=== PATIENT | female | born 1950 | race Caucasian/White ===

== ENCOUNTER 2021-08-01 12:46 | Outpatient (REF) | payer MEDICARE, SELFPAY ==
--- NOTE | ~2021-08-01 | MM_ITS ---
EXAMINATION: MM SCREENING DIGITAL BREAST TOMOSYNTHESIS, BILATERAL CLINICAL INFORMATION: Screening. Asymptomatic. The lifetime risk of breast cancer based on the Tyrer-Cuzick Model is 3%. COMPARISON: Mammography: 05/18/2019, 05/07/2018, 05/05/2017 TECHNIQUE: Digital breast tomosynthesis is performed in both the craniocaudal and mediolateral oblique views along with computer-aided detection (CAD). Synthesized 2D images are generated from the tomosynthesis. FINDINGS: There are scattered areas of fibroglandular density (ACR BI-RADS breast composition Category b). There are no significant masses, abnormal calcifications, or other abnormalities. Parenchymal pattern is similar to prior studies. The axilla and skin contours are unremarkable. MM/MM tomosynthesis screening BI IMPRESSION: No mammographic evidence of malignancy. ASSESSMENT: BI-RADS 1: Negative RECOMMENDATION: Routine annual mammography screening. This patient's information was entered into a reminder system with a target due date for their next mammogram.
== END 2021-08-01 12:47 | disposition home or self-care (01) ==
LOC: HO.MAMMO 12:46
PROVIDERS: PCP Internal Medicine; Visit Provider Internal Medicine
DX: Z12.31 Encounter for screening mammogram for malignant neoplasm of breast (principal)
CPT/HCPCS: 77063; 77067

== ENCOUNTER 2021-10-24 08:49 | Outpatient (REF) | payer MEDICARE, SELFPAY ==
--- NOTE | ~2021-10-24 | US_ITS ---
EXAMINATION: US ABDOMEN COMPLETE CLINICAL INFORMATION: Epigastric abdominal pain. COMPARISON: CT abdomen 05/10/2006, x-ray abdomen 05/10/2006. TECHNIQUE: Real-time imaging of the abdominal viscera. FINDINGS: PANCREAS: Partially visualized body of the pancreas is homogeneous in echotexture. The head and the tail are not seen. ABDOMINAL AORTA: The proximal, mid, and distal segments are normal in caliber. INFERIOR VENA CAVA: Visualized portions are normal. LIVER: The liver is normal in size. The liver contour is normal. Parenchymal echogenicity is normal. There are anechoic cysts in the liver. 1. Lesion in the left hepatic lobe measures 2.2 x 2.0 x 2.0 cm. 2. Lesion in the left hepatic lobe measures 2.1 x 1.9 x 1.8 cm. 3. Lesion in the right hepatic lobe measures 1.7 x 1.2 x 1.3 cm. 4. Lesion in the right lower lobe measures 3.3 x 2.1 x 3.1 cm and appears complex. There is no intrahepatic biliary duct dilatation seen. GALLBLADDER: The gallbladder is physiologically distended without evidence of stones, sludge, polyps, wall thickening or pericholecystic fluid. There is gallbladder debris seen in the decubitus view. COMMON BILE DUCT: Normal in caliber measuring 0.5 cm in diameter. RIGHT KIDNEY: No renal calculi or focal parenchymal lesions. There is mild hydronephrosis. The kidney measures 9.9 cm in maximum dimension. LEFT KIDNEY: No renal calculi or focal parenchymal lesions. There is mild hydronephrosis. The kidney measures 11.0 cm in maximum dimension. SPLEEN: Normal. The spleen measures 9.5 cm in maximum dimension. FREE FLUID: None. US/US abdomen complete IMPRESSION: Multiple hepatic cysts. They were visualized on the previous CT abdomen exam 05/11/2006. Bilateral mild hydronephrosis of unknown etiology.
== END 2021-10-24 08:50 | disposition home or self-care (01) ==
LOC: HO.US 08:49
PROVIDERS: Visit Provider Internal Medicine
DX: R10.13 Epigastric pain (principal)
CPT/HCPCS: 76700

== ENCOUNTER 2022-08-06 13:00 | Outpatient (REF) | payer MEDICARE, SELFPAY ==
--- NOTE | ~2022-08-06 | MM_ITS ---
EXAMINATION: MM SCREENING DIGITAL BREAST TOMOSYNTHESIS, BILATERAL CLINICAL INFORMATION: Screening. Asymptomatic. The lifetime risk of breast cancer based on the Tyrer-Cuzick Model is 2.9%. COMPARISON: Mammography: August 01, 2021 and studies dating back to May 11, 2010 TECHNIQUE: Digital breast tomosynthesis is performed in both the craniocaudal and mediolateral oblique views along with computer-aided detection (CAD). Synthesized 2D images are generated from the tomosynthesis. FINDINGS: There are scattered areas of fibroglandular density (ACR BI-RADS breast composition Category b). There are no significant masses, abnormal calcifications, or other abnormalities. MM/MM tomosynthesis screening BI IMPRESSION: No significant changes from prior exam. ASSESSMENT: BI-RADS 1: Negative RECOMMENDATION: Routine annual mammography screening. This patient's information was entered into a reminder system with a target due date for their next mammogram.
== END 2022-08-06 13:01 | disposition home or self-care (01) ==
LOC: HO.MAMMO 13:00
PROVIDERS: PCP Internal Medicine; Visit Provider Internal Medicine
DX: Z12.31 Encounter for screening mammogram for malignant neoplasm of breast (principal)
CPT/HCPCS: 77063; 77067

== ENCOUNTER 2023-06-22 23:26 | Emergency (ER) | payer MEDICARE, SELFPAY ==
--- NOTE | 2023-06-22 | ECG_ITS ---
Test Reason : episode of unresponsiveness Blood Pressure : / mmHG Vent. Rate : 050 BPM Atrial Rate : 050 BPM P-R Int : 200 ms QRS Dur : 094 ms QT Int : 470 ms P-R-T Axes : 046 -32 029 degrees QTc Int : 428 ms Sinus bradycardia Left axis deviation Possible Lateral infarct , age undetermined Abnormal ECG When compared with ECG of 27-AUG-2017 09:52, Vent. rate has decreased BY 26 BPM Borderline criteria for Lateral infarct are now Present Referred By: Generic ED Physician Electronically Signed By:Dennys Chahal
--- NOTE | ~2023-06-22 | CT_ITS ---
EXAMINATION: CT HEAD WITHOUT CONTRAST CLINICAL INFORMATION: Unresponsiveness. COMPARISON: CT head from 07/03/2008. TECHNIQUE: Contiguous axial imaging was performed from the skull base to vertex without intravenous administration of contrast. This CT examination was performed using dose optimization techniques as appropriate, variously including the following: *Automated exposure control. *Adjustment of mA and/or kV according to patient size (this includes techniques or standardized protocols for targeted exams where dose is matched to indication/reason for exam; i.e. extremities or head). *Use of iterative reconstruction technique. DLP: 586 mGy-cm FINDINGS: There is no evidence of acute intracranial hemorrhage or edematous territorial infarction. Chu-white matter differentiation is preserved. A few foci of hypoattenuation in the periventricular and deep white matter are consistent with mild microangiopathy. The ventricles are normal in morphology and size. No evidence for obstructive hydrocephalus. No abnormal mass effect or midline shift. No extra-axial fluid collections. No acute soft tissue or osseous abnormalities. Persistent metopic suture. The mastoid air cells and visualized paranasal sinuses are clear. Moderate to advanced degenerative arthropathy of the temporomandibular joints. CT/CT head/brain wo IV con IMPRESSION: 1. No evidence of acute intracranial hemorrhage or edematous territorial infarction. 2. Mild underlying microangiopathy.
[2023-06-22 23:38] VITALS: BP 120/80; PULSE 60; O2SAT 99
[2023-06-22 23:39] VITALS: BP 130/69; PULSE 59; RESP 16; TEMP 36.6; O2SAT 99; BMI 31.6
[2023-06-23 00:01] LABS: Hematocrit 43.4 % (37.0-47.0); Hemoglobin 14.5 g/dl (12.0-16.0); Mean Corpuscular HGB Conc 33.4 g/dl (31.0-35.0); Mean Corpuscular Volume 95.8 fL (80.0-98.0); Mean Platelet Volume 9.2 fL (9.4-12.3); Platelet Count 235 X10*3/uL (160-400); Red Blood Count 4.53 X10*6/uL (4.20-5.50); Red Cell Distribution Width 12.1 % (11.0-16.0); White Blood Count 6.6 X10*3/uL (4.8-10.8)
[2023-06-23 00:16] LABS: Alanine Aminotransferase 17 U/L (0-31); Albumin Level 4.1 g/dL (3.5-5.0); Alkaline Phosphatase 75 U/L (39-117); Anion Gap 11 (12-20); Aspartate Amino Transferase 22 U/L (5-31); Bilirubin Total 0.5 mg/dL (0.0-1.0); Blood Urea Nitrogen 19 mg/dL (9-16); Calcium 9.2 mg/dL (8.4-10.2); Carbon Dioxide 29 mmol/L (22-29); Chloride 104 mmol/L (96-108); Creatinine Clr Calc Pharmacy 65.6; Estimated Glomerular Filt Rate > 60; Glucose Random 60 mg/dL (60-115); Potassium 3.4 mmol/L (3.3-5.1); Sodium 141 mmol/L (135-145); Total Protein 6.5 g/dL (6.5-8.0)
[2023-06-23 00:18] LABS: Glucose, Whole Blood 72 mg/dL (60-115)
[2023-06-23 00:18] LABS: Glucose, Whole Blood 100 mg/dL (60-115)
[2023-06-23 00:23] LABS: Troponin-I High Sensitivity 2.9 ng/L (<3.5-17.0)
[2023-06-23 00:37] LABS: COVID-19 Test Negative (Negative); IDNOW Serial# 08D9AD1C; IDNOW Serial# 152EDE1D; Influenza A Negative (Negative); Influenza B2 Negative (Negative)
--- NOTE | 2023-06-23 00:38 | ED.GENADULT ---
HPI - General Adult General Chief complaint: General Medical Stated complaint: weakness, low poc of 40 Time Seen by Provider: 06/23/23 00:23 Source: patient, family (Spouse) and EMS Mode of arrival: EMS Limitations: no limitations History of Present Illness HPI narrative: 73-year-old female brought in by ambulance for evaluation after was found unresponsive by her . Patient had a dinner last night ?rice, green beans, and roasted chicken ?and high sugar drink after dinner, patient went to bed around 22:30 found her in bed not responding to him and sweating profusely then he called 911 on EMS arrival sugar was 40 patient was given 12.5 dextrose by EMS patient started to respond gradually after, patient is not known to be diabetic or taking anti hyperglycemic medication and eats normal meals and normally likes eating excess carbohydrate. declined seeing any seizure activity. Patient has no chest pain or abdominal pain. Recently patient had upper respiratory infection that improved after finished a course of Z-Saturnino. Patient feels back to her baseline. Related Data Allergies Allergy/AdvReac Type Severity Reaction Status Date / Time codeine [CODEINE] Allergy Unknown PSYCHOTOPIC Verified 06/23/23 00:28 EFFECT penicillin G [PENICILLIN G] Allergy Unknown HIVES Verified 06/23/23 00:28 Review of Systems Review of Systems: All other systems are reviewed and are negative Constitutional: Reports as per HPI and Reports no additional constitutional complaints Eyes: Reports as per HPI and Reports no additional eye complaints Reports system reviewed and no additional complaints, except as documented Cardiovascular: Reports as per HPI and Reports no additional cardiovascular complaints Respiratory: Reports as per HPI and Reports no additional respiratory complaints Gastrointestinal: Reports as per HPI and Reports no additional gastrointestinal complaints Genitourinary: Reports no additional female genitourinary complaints Musculoskeletal: Reports no additional musculoskeletal complaints Skin/Breast: Reports system reviewed and no additional complaints, except as docu Psychiatric: Reports no additional psychiatric complaints Endocrine: Reports no additional endocrine complaints Hematologic/Lymphatic: Reports no additional hematologic/lymphatic complaints Allergic/Immunologic: Reports no additional allergic/immunologic complaints Reports system reviewed and no additional complaints, except as documented and Reports Abnormal speech present [facility] Social History Social History Smoked in Last 30 Days: No Use of substances other than those prescribed or required for medical reasons: No Advance Directives: No Advance Directives Information Provided: No Physical Exam ED Vital Signs: Vital Signs - 24 hr 06/22/23 23:39 06/23/23 02:00 06/23/23 02:33 Temperature 98 F Pulse Rate 59 64 65 Respiratory Rate 16 16 Blood Pressure 130/69 134/77 142/86 H Pulse Oximetry 99 99 Oxygen Delivery Method Room Air Room Air 06/23/23 02:39 06/23/23 02:44 Temperature Pulse Rate 68 74 Respiratory Rate Blood Pressure 148/84 H 134/77 Pulse Oximetry Oxygen Delivery Method BMI result Body Mass Index 31.6 Vital signs have been reviewed and appear to be correct. Blood pressure elevated. Heart rate normal. Respiratory rate normal. Temperature normal. Oxygen saturation normal. Appearance: Alert. Oriented X3. No acute distress. Head: Normal external exam. Normocephalic. Atraumatic. No Lin signs noted. No raccoon eyes noted Eyes: PERRLA. EOMI. Conjunctiva and sclera normal. Eyelids normal. ENT: TM's Normal. Pharynx normal. Uvula midline. Moist mucous membranes. No trismus noted. No drooling noted. No muffled voice noted. Neck: Normal inspection. Neck supple. FROM. No adenopathy. Thyroid Normal. No meningeal signs. No neck mass noted. CVS: Normal heart rate and rhythm. Heart sound normal. No murmurs noted. Pulses normal throughout. Respiratory: No respiratory distress. Painless inspiration. Breath sounds normal. No wheezes/rales/rhonchi noted. Chest nontender. No accessory muscle usage noted or decreased air movement noted. Abdomen: Soft and nontender. Bowel sounds normal in all 4 quadrants. No distention noted. No organomegaly noted. No visible injury noted. Back: No CVA tenderness. Full range of motion noted. Skin: Skin warm and dry. Normal skin color. Normal skin turgor. No rashes/lesions/lacerations noted. Extremities: No lower extremity edema. Extremities exhibit normal range of motion. Extremities nontender. Neuro: Oriented X 3. Cranial nerve exam: II-XII are grossly intact No motor deficit. No sensory deficit. Reflexes normal. Course Reevaluation(s) Reevaluation #1: 73-year-old female brought in by ambulance after was found by unresponsive in bed, found to be hypoglycemic by EMS patient is not known to be diabetic or taking any medication to cause hypoglycemia however patient gradually improved after was given dextrose by EMS. Patient now is AAOx3. Will admit the patient for further investigation. Time: 02:28 Medications Administered Discontinued Medications Generic Name Dose Route Start Last Admin Trade Name Haleigh PRN Reason Stop Dose Admin Sodium Chloride 1,000 mls @ 999 mls/hr 06/23/23 00:48 06/23/23 02:33 Ns IV 06/23/23 01:48 Infused .Q1H1M ONE Infusion Medical Decision Making Differential Diagnosis Differential Diagnoses: The differential diagnosis associated with the presentation includes (Syncope, postictal and seizure, hypoglycemia, electrolyte abnormality, severe anemia, ACS, intracranial bleed, upper respiratory infection.) Admission/Observation Consideration of admission/observation: Escalation of care including admission/observation considered Consult Healthcare Provider Management of the patient was discussed with: Hospitalist (Dr. Daniel) Patient was seen and examined by Dr. Daniel, who disagree with admission advised to send the patient home to follow-up with PCP. Lab Data MDM Lab Attestation statement: I reviewed the patient's lab results. 06/22/23 23:55 06/22/23 23:56 Labs: Lab Results 06/22/23 06/22/23 06/22/23 Range/Units 23:47 23:55 23:56 WBC 6.6 (4.8-10.8) X10*3/uL RBC 4.53 (4.20-5.50) X10*6/uL Hgb 14.5 (12.0-16.0) g/dl Hct 43.4 (37.0-47.0) % MCV 95.8 (80.0-98.0) fL MCH 32.0 (27.0-33.0) pg MCHC 33.4 (31.0-35.0) g/dl RDW 12.1 (11.0-16.0) % Plt Count 235 (160-400) X10*3/uL MPV 9.2 L (9.4-12.3) fL Absolute Nucleated RBC 0.000 (0.0-0.012) X10*3/uL Nucleated RBC % (auto) 0.0 (0.0-0.2) /100WBC Sodium 141 (135-145) mmol/L Potassium 3.4 (3.3-5.1) mmol/L Chloride 104 (96-108) mmol/L Carbon Dioxide 29 (22-29) mmol/L Anion Gap 11 L (12-20) BUN 19 H (9-16) mg/dL Creatinine 0.84 (0.5-1.4) mg/dL Estim Creat Clear Calc 65.6 Estimated GFR > 60 POC Glucose 72 (60-115) mg/dL Random Glucose 60 (60-115) mg/dL Calcium 9.2 (8.4-10.2) mg/dL Total Bilirubin 0.5 (0.0-1.0) mg/dL AST 22 (5-31) U/L ALT 17 (0-31) U/L Alkaline Phosphatase 75 (39-117) U/L Troponin I High Sens 2.9 (<3.5-17.0) ng/L Total Protein 6.5 (6.5-8.0) g/dL Albumin 4.1 (3.5-5.0) g/dL COVID-19 (DAVID) (Negative) COVID-19 Clin Com Influenza Type A (GENET) (Negative) Influenza Type B (GENET) (Negative) Influenza A & B Note 06/23/23 06/23/23 06/23/23 Range/Units 00:08 00:12 02:36 WBC (4.8-10.8) X10*3/uL RBC (4.20-5.50) X10*6/uL Hgb (12.0-16.0) g/dl Hct (37.0-47.0) % MCV (80.0-98.0) fL MCH (27.0-33.0) pg MCHC (31.0-35.0) g/dl RDW (11.0-16.0) % Plt Count (160-400) X10*3/uL MPV (9.4-12.3) fL Absolute Nucleated RBC (0.0-0.012) X10*3/uL Nucleated RBC % (auto) (0.0-0.2) /100WBC Sodium (135-145) mmol/L Potassium (3.3-5.1) mmol/L Chloride (96-108) mmol/L Carbon Dioxide (22-29) mmol/L Anion Gap (12-20) BUN (9-16) mg/dL Creatinine (0.5-1.4) mg/dL Estim Creat Clear Calc Estimated GFR POC Glucose 100 109 (60-115) mg/dL Random Glucose (60-115) mg/dL Calcium (8.4-10.2) mg/dL Total Bilirubin (0.0-1.0) mg/dL AST (5-31) U/L ALT (0-31) U/L Alkaline Phosphatase (39-117) U/L Troponin I High Sens (<3.5-17.0) ng/L Total Protein (6.5-8.0) g/dL Albumin (3.5-5.0) g/dL COVID-19 (DAVID) Negative (Negative) COVID-19 Clin Com See Note Influenza Type A (GENET) Negative (Negative) Influenza Type B (GENET) Negative (Negative) Influenza A & B Note See Note Independent Interpretation I performed an independent interpretation of an: EKG (Sinus bradycardia at 50 beats per minutes, left axis deviation, normal intervals, nonspecific ST-T changes.) and CT Scan (Head:1. No evidence of acute intracranial hemorrhage or edematous territorial infarction. 2. Mild underlying microangiopathy. ) Radiology Impression Discussion of test interpretation with radiology: I have reviewed the radiologist's reading. Discharge Plan Discharge Clinical Impression: Episode of unresponsiveness, Hypoglycemia after GI (gastrointestinal) surgery Patient Disposition: Home, Self-Care Instructions: Non-diabetic Hypoglycemia (ED) Additional Instructions: Follow-up with your PCP. Also recommended to follow-up with care transition manager as an outpatient.
[2023-06-23] MEDS: 0.9 % Sodium Chloride 1,000 ML 999 ML IV (01:38)
[2023-06-23 02:00] VITALS: BP 134/77; PULSE 64; RESP 16; O2SAT 99
[2023-06-23 02:33] VITALS: BP 142/86; PULSE 65
[2023-06-23 02:39] VITALS: BP 148/84; PULSE 68
[2023-06-23 02:44] VITALS: BP 134/77; PULSE 74
[2023-06-23 02:49] LABS: Glucose, Whole Blood 109 mg/dL (60-115)
--- NOTE | 2023-06-23 02:51 | PC.NURSE ---
PT's POC now 109, laying in bed, feels fine . Orthos negative. at bedside. VSS. Awaiting hospitalist, pending admission.
[2023-06-23 04:04] LABS: Glucose, Whole Blood 109 mg/dL (60-115)
--- NOTE | 2023-06-23 06:20 | PM.EVENT ---
Event Note Date of Service: 06/23/23 Event Note: Was asked to evaluate the patient for admission for possible seizure. Patient states that after she had dinner, she was lying down when she had profuse sweating, palpitations, dizziness, weakness and decreased responsiveness (noticed by the ). He called EMS who noticed that the blood sugar was in the 40s. EMS administered dextrose and patient returned to baseline consciousness. No history of seizure disorder or rhythmic jerking movement of extremities noticed by the . No tongue bite. No postictal confusion. The patient stated that she had a history of gastric bypass surgery about 20 years ago and has had similar episodes in the past. 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 Repeat POC's in the ER within normal limits. No indication for inpatient admission. Patient counseled regarding conservative treatment with small frequent meals that are high in fiber and protein and low in carbohydrates. Time Spent With Patient Time: Total time managing care of this patient today ____ minutes.
== END 2023-06-23 05:00 | disposition home or self-care (01) ==
PROVIDERS: Emergency Provider Emergency Medicine
DX: R40.4 Transient alteration of awareness (principal); E16.2 Hypoglycemia, unspecified; R00.1 Bradycardia, unspecified; Z11.52 Encounter for screening for COVID-19; Z79.899 Other long term (current) drug therapy
CPT/HCPCS: 36415; 70450; 80053; 82947; 84484; 85027; 87502; 87635; 92950; 93005; 96360; 99284; 99285

== ENCOUNTER → 2023-06-22 23:45 | Outpatient (BNV) | payer MEDICARE, SELFPAY | PROVIDERS: Emergency Provider Emergency Medicine; Visit Provider Internal Medicine Cardiovascular Disease | DX: R00.1 Bradycardia, unspecified (principal) | CPT/HCPCS: 93010 ==

== ENCOUNTER 2023-08-18 11:43 | Outpatient (REF) | payer MEDICARE, SELFPAY ==
--- NOTE | ~2023-08-18 | MM_ITS ---
EXAMINATION: MM SCREENING DIGITAL BREAST TOMOSYNTHESIS, BILATERAL CLINICAL INFORMATION: Screening. Asymptomatic. COMPARISON: Mammography: This study is compared with prior exams dating back to 2019. TECHNIQUE: Digital breast tomosynthesis is performed in both the craniocaudal and mediolateral oblique views along with computer-aided detection (CAD). Synthesized 2D images are generated from the tomosynthesis. FINDINGS: There are scattered areas of fibroglandular density (ACR BI-RADS breast composition Category b). There are no significant masses, abnormal calcifications, or other abnormalities. There is a tissue marker present in the upper outer quadrant of the right breast from prior benign percutaneous biopsy. MM/MM tomosynthesis screening BI IMPRESSION: No mammographic evidence of malignancy. ASSESSMENT: BI-RADS BI-RADS 2 - Benign Findings RECOMMENDATION: Routine annual mammography screening. 1 year F/U This examination should not preclude the clinical evaluation of a suspicious palpable abnormality. This patient's information was entered into a reminder system with a target due date for their next mammogram.
== END 2023-08-18 11:44 | disposition home or self-care (01) ==
LOC: HO.MAMMO 11:43
PROVIDERS: Visit Provider Internal Medicine
DX: Z12.31 Encounter for screening mammogram for malignant neoplasm of breast (principal)
CPT/HCPCS: 77063; 77067

== ENCOUNTER → 2023-08-18 11:45 | Outpatient (BNV) | payer MEDICARE, SELFPAY | PROVIDERS: Visit Provider Radiology Diagnostic Radiology | DX: Z12.31 Encounter for screening mammogram for malignant neoplasm of breast (principal) | CPT/HCPCS: 77063; 77067 ==

== ENCOUNTER 2023-10-10 21:57 | Emergency (ER) | payer MEDICARE, SELFPAY ==
[2023-10-10 21:56] VITALS: BP 162/82; PULSE 67; O2SAT 97
[2023-10-10 22:02] VITALS: BP 152/78; PULSE 71; RESP 16; TEMP 36.8; O2SAT 97; BMI 33.6
[2023-10-10 22:08] LABS: Glucose, Whole Blood 98 mg/dL (60-115)
--- NOTE | 2023-10-10 22:25 | PC.NURSE ---
pt biba from home reporting anxiety. pt felt she was hypoglycemic but did not have test strips to check POC; drank OJ. POC 91 for ems. pt does not have hx diabetes. hx htn not med compliant. pt previously here for hypoglycemia/unresponsive. on arrival pt is axox4 speaking full clear sentences. poc 98. vss. nsr on monitor 71 bpm. resp even and unlabored. calm/cooperative. awaiting primary eval by ed provider. call estrella within reach.
--- NOTE | 2023-10-10 23:16 | ED.GENADULT ---
HPI - General Adult General Chief complaint: General Medical Stated complaint: anxiety, hypoglycemia (91 BGL) Time Seen by Provider: 10/10/23 23:10 Source: patient Mode of arrival: EMS Limitations: no limitations History of Present Illness ED Provider: yonas HPI narrative: Patient has been increased depressed as her 19 years old cat left her house about 2 weeks and never came back not eating much also had gastric bypass surgery in the past just prior to arrival patient has become very anxious thought she was hypoglycemic as in the past and took orange juice on arrival patient's blood glucose was 98 patient is back to normal after arrival relaxed Related Data Allergies Allergy/AdvReac Type Severity Reaction Status Date / Time codeine [CODEINE] Allergy Unknown PSYCHOTOPIC Verified 06/23/23 00:28 EFFECT penicillin G [PENICILLIN G] Allergy Unknown HIVES Verified 06/23/23 00:28 oxycodone Allergy Unknown Verified 10/10/23 22:02 Review of Systems Review of Systems: Yes all other systems are reviewed and are negative [facility] Social History Social History Smoked in Last 30 Days: No Use of substances other than those prescribed or required for medical reasons: No Advance Directives: No Advance Directives Information Provided: No Physical Exam ED Vital Signs: Vital Signs - 24 hr 10/10/23 22:02 10/11/23 00:36 10/11/23 00:36 Temperature 98.2 F 97.8 F 97.8 F Pulse Rate 71 68 68 Respiratory Rate 16 17 17 Blood Pressure 152/78 H 138/71 138/71 Pulse Oximetry 97 100 100 Oxygen Delivery Method Room Air Room Air Room Air BMI result Body Mass Index 33.6 Appearance: Alert. Oriented X3. No acute distress. Neck: Normal inspection. Neck supple. CVS: Normal heart rate and rhythm. Pulses normal. Respiratory: No respiratory distress. Equal air entry bilateral, no wheezing/rales/rhonchi Abdomen: Soft and nontender. Bowel sounds are present, no mass palpable, no CVA tenderness Skin: Skin warm and dry. Normal skin color. Normal skin turgor. Extremities: No lower extremity edema. No calf tenderness Neuro: Oriented X 3. No motor deficit. Medical Decision Making Medical Decision Making MDM Narrative: Patient with increased anxiety with grief reaction labs are stable does have trazodone at home will discharge patient home advised to follow with PCP Differential Diagnosis Differential Diagnoses: The differential diagnosis associated with the presentation includes Lab Data MDM Lab Attestation statement: I reviewed the patient's lab results. 10/10/23 23:24 10/10/23 23:24 Labs: Lab Results 10/10/23 10/10/23 Range/Units 22:03 23:24 WBC 7.0 (4.8-10.8) X10*3/uL RBC 4.10 L (4.20-5.50) X10*6/uL Hgb 13.4 (12.0-16.0) g/dl Hct 39.2 (37.0-47.0) % MCV 95.6 (80.0-98.0) fL MCH 32.7 (27.0-33.0) pg MCHC 34.2 (31.0-35.0) g/dl RDW 12.3 (11.0-16.0) % Plt Count 206 (160-400) X10*3/uL MPV 9.2 L (9.4-12.3) fL Immature Gran % (Auto) 0.3 (0.0-0.4) % Neut % (Auto) 62.1 (45-73) % Lymph % (Auto) 25.1 (20-40) % Aiken % (Auto) 8.5 (2-11) % Eos % (Auto) 3.1 (0-4) % Baso % (Auto) 0.9 (0-2) % Lymph # (Auto) 1.8 (1.2-4.9) X10*3/uL Aiken # (Auto) 0.6 (0.1-1.2) X10*3/uL Eos # (Auto) 0.2 (0.0-0.4) X10*3/uL Baso # (Auto) 0.1 (0.0-0.2) X10*3/uL Abs Immat Gran (auto) 0.02 (0.00-0.03) X10*3/uL Absolute Neuts (auto) 4.4 (2.0-8.3) x10*3/uL Absolute Nucleated RBC 0.000 (0.0-0.012) X10*3/uL Nucleated RBC % (auto) 0.0 (0.0-0.2) /100WBC Sodium 142 (135-145) mmol/L Potassium 3.9 (3.3-5.1) mmol/L Chloride 103 (96-108) mmol/L Carbon Dioxide 29 (22-29) mmol/L Anion Gap 14 (12-20) BUN 18 H (9-16) mg/dL Creatinine 0.75 (0.5-1.4) mg/dL Estim Creat Clear Calc 75.8 Estimated GFR > 60 POC Glucose 98 (60-115) mg/dL Random Glucose 111 (60-115) mg/dL Calcium 9.0 (8.4-10.2) mg/dL Total Bilirubin 0.4 (0.0-1.0) mg/dL AST 23 (5-31) U/L ALT 20 (0-31) U/L Alkaline Phosphatase 75 (39-117) U/L Total Protein 6.2 L (6.5-8.0) g/dL Albumin 3.8 (3.5-5.0) g/dL Discharge Plan Discharge Clinical Impression: Acute anxiety Patient Disposition: Home, Self-Care Instructions: Anxiety (ED) Additional Instructions: Relax at home have meals on time Take medication to sleep as prescribed by your PCP Interventions: ED Discharge Assessment Last Done: 10/11/23 00:36 Discharge Date/Time: 10/11/23 00:36 Print Language: Turkmen
[2023-10-10 23:27] LABS: MANUAL DIFF FLAG NO
[2023-10-10 23:28] LABS: Basophils Absolute Auto 0.1 X10*3/uL (0.0-0.2); Basophils Percent Auto 0.9 % (0-2); Eosinophils Absolute Auto 0.2 X10*3/uL (0.0-0.4); Eosinophils Percent Auto 3.1 % (0-4); Hematocrit 39.2 % (37.0-47.0); Hemoglobin 13.4 g/dl (12.0-16.0); Imm Gran Abs Auto 0.02 X10*3/uL (0.00-0.03); Imm Gran Pct Auto 0.3 % (0.0-0.4); Lymphocytes Absolute Auto 1.8 X10*3/uL (1.2-4.9); Lymphocytes Percent Auto 25.1 % (20-40); Mean Corpuscular HGB Conc 34.2 g/dl (31.0-35.0); Mean Corpuscular Hemoglobin 32.7 pg (27.0-33.0); Mean Corpuscular Volume 95.6 fL (80.0-98.0); Mean Platelet Volume 9.2 fL (9.4-12.3); Monocytes Absolute Auto 0.6 X10*3/uL (0.1-1.2); Monocytes Percent Auto 8.5 % (2-11); Neutrophils Absolute Auto 4.4 x10*3/uL (2.0-8.3); Neutrophils Percent Auto 62.1 % (45-73); Platelet Count 206 X10*3/uL (160-400); Red Cell Distribution Width 12.3 % (11.0-16.0)
[2023-10-10 23:46] LABS: Alanine Aminotransferase 20 U/L (0-31); Albumin Level 3.8 g/dL (3.5-5.0); Alkaline Phosphatase 75 U/L (39-117); Anion Gap 14 (12-20); Aspartate Amino Transferase 23 U/L (5-31); Bilirubin Total 0.4 mg/dL (0.0-1.0); Blood Urea Nitrogen 18 mg/dL (9-16); Carbon Dioxide 29 mmol/L (22-29); Chloride 103 mmol/L (96-108); Creatinine Clr Calc Pharmacy 75.8; Estimated Glomerular Filt Rate > 60; Glucose Random 111 mg/dL (60-115); Potassium 3.9 mmol/L (3.3-5.1); Sodium 142 mmol/L (135-145); Total Protein 6.2 g/dL (6.5-8.0)
[2023-10-11 00:36] VITALS: BP 138/71; PULSE 68; RESP 17; TEMP 36.6; O2SAT 100
--- OUTSIDE RECORDS SUMMARY | 2023-10-16 07:08 | XMS_ITS | Continuity of Care Document ---
Author Organization [facility] Address [address] [place] [address]- Care Team Providers Care Rn Travel Name Role Phone Rachelle Goodman MD Primary Care Physician Encounter [facility] Date(s): 11/30/20 - 12/30/[address] [address] Attending Physician: AdmKendal mejia Admitting Physician: AdmtrKendal Referring Physician: Admtr, Ar8 Allergies, Adverse Reactions, Alerts Substance Reaction Severity Status codeine Active lisinopril 1 Active penicillins hives Active Dyazide 2 Active Adhesive Bandage Active 1Dizziness 2Dizziness Immunizations Given and Recorded Vaccine Date Status Refusal Reason SARS-CoV-2 (COVID-19) mRNA BNT-162b2 vac 08/08/20 Given SARS-CoV-2 (COVID-19) mRNA BNT-162b2 vac 07/18/20 Given influenza virus vaccine, inactivated 02/08/20 Give n influenza virus vaccine, inactivated 1 01/26/18 Gi lashon influenza virus vaccine, inactivated 06/09/17 Give n influenza virus vaccine, inactivated 05/21/16 Give n influenza virus vaccine, inactivated 01/30/15 Jv rded influenza virus vaccine, inactivated 2 01/26/13 Gi lashon influenza virus vaccine, inactivated 3 01/17/11 Gi lashon influenza virus vaccine, inactivated 01/17/11 Give n influenza virus vaccine, inactivated 01/16/10 Give n influenza virus vaccine, inactivated 05/29/09 Give n influenza virus vaccine, inactivated 4 05/05/08 Gi lashon tetanus-diphtheria toxoids (Td) 05/14/19 Given Influenza Virus Vaccine (oldterm) 04/28/19 Recorde d pneumococcal 23-valent vaccine 5 01/26/18 Given pneumococcal 13-valent vaccine 08/27/16 Given Influenza Inactive (IM) (oldterm) 05/04/14 Recorde d FluLaval (oldterm) 6 02/03/12 Given Zostavax (oldterm) 7 12/14/11 Given Hepatitis A Adult Vaccine 8 01/17/11 Given Hepatitis A Adult Vaccine 9 03/28/10 Given tetanus/diphtheria/pertussis, acel(Tdap) 03/28/10 Given influ virus vac, H1N1, inactive(oldterm) 05/29/09 Given Tetanus Toxoid Vaccine (oldterm) 05/20/01 Given 1Result Comment: [01/26/2018] [id number] 2Result Comment: [01/26/2013] Ordered by Dr. Rachelle Goodman 3Admin Note: [facility] 4Admin Note: von hoskins pasteur 5Result Comment: [01/26/2018] [id number] 6Admin Note: Gave the VIS 10-21-2011 7Admin Note: [facility] 8Admin Note: hep A #2 9Admin Note: hep A #1 Medications CeleBREX 200 mg oral capsule 1 capsule = 200 mg, By Mouth, Daily, # 30 capsule, 0 Refills, Maintenance, 06/09/19 6:34:00 EST, Capsule Start Date: 06/09/19 Status: Ordered duloxetine 60 mg oral enteric coated capsule 1 capsule = 60 mg, By Mouth, Daily, # 30 capsule, 0 Refills, Maintenance, 12/06/16 16:05:33, EC Capsule Start Date: 12/06/16 Status: Ordered Problem List Condition Effective Dates Status Health Status Inform ant Alopecia Areata(Confirmed) 06/25/12 Active EDDIE positive at 1:2,560 homogenous(Confirmed) 03/18/12 Active Benign positional vertigo(Confirmed) Active Cervical arthritis(Confirmed) Active Diverticulosis(Confirmed) Active Gastric reflux(Confirmed) Active History of gastric bypass(Confirmed) Active Hypercholesterolemia mild(Confirmed) Active Hypertension(Confirmed) Active Irritable bowel syndrome(Confirmed) Active Lichen planus(Confirmed) Active Lipodystrophy(Confirmed) Active Low libido(Confirmed) 1 Active Osteoarthritis of lumbar spine(Confirmed) 10/26/13 Active Obesity(Confirmed) Active Prediabetes(Confirmed) Active Moderate recurrent major depression(Confirmed) Active Seasonal allergic rhinitis(Confirmed) Active Tricuspid regurgitation(Confirmed) 2 07/30/06 Active Vitamin D deficiency(Confirmed) 08/29/08 Active 1? due to citalopram 2mild to moderate Social History Social History Type Response Smoking Status Never smoker entered on: 05/10/14 Sex
--- OUTSIDE RECORDS SUMMARY | 2023-10-16 07:08 | XMS_ITS | Continuity of Care Document ---
Author Organization [facility] ter Address [address] [place] [address]- Care Team Providers Care Discharge Coordinator Name Role Phone Rachelle Goodman MD Primary Care Physician Encounter [facility] Date(s): 06/09/19 - 06/10/[address] [address] [facility] Discharge Disposition: A-Transfer VNA/Home Health Attending Physician: Matthew Chang MD Admitting Physician: Matthew Chang MD Referring Physician: Matthew Chang MD Allergies, Adverse Reactions, Alerts Substance Reaction Severity Status codeine Active lisinopril 1 Active penicillins hives Active Dyazide 2 Active Adhesive Bandage Active 1Dizziness 2Dizziness Immunizations Given and Recorded Vaccine Date Status Refusal Reason tetanus-diphtheria toxoids (Td) 05/14/19 Given Influenza Virus Vaccine (oldterm) 04/28/19 Recorde d influenza virus vaccine, inactivated 1 01/26/18 Gi [...] virus vaccine, inactivated 4 05/05/08 Gi lashon pneumococcal 23-valent vaccine 5 01/26/18 Given pneumococcal 13-valent vaccine 08/27/16 Given Influenza Inactive (IM) (oldterm) 05/04/14 Recorde d FluLaval (oldterm) 6 02/03/12 Given Zostavax (oldterm) 7 12/14/11 Given Hepatitis A Adult Vaccine 8 01/17/11 Given Hepatitis A Adult Vaccine 9 03/28/10 Given tetanus/diphtheria/pertussis, acel(Tdap) 03/28/10 Given influ virus vac, H1N1, inactive(oldterm) 05/29/09 Given Tetanus Toxoid Vaccine (oldterm) 05/20/01 Given 1Result Comment: [01/26/2018] [id number] 2Result Comment: [01/26/2013] Ordered by Dr. Rachelle Goodman 3Admin Note: [facility] 4Admin Note: von andresofi pasteur 5Result Comment: [01/26/2018] [id number] 6Admin Note: Gave the VIS 10-21-2011 7Admin Note: [facility] 8Admin Note: hep A #2 9Admin Note: hep A #1 Medications acetaminophen 325 mg oral tablet 650 mg, By Mouth, Every 6 hours, Refills 0, Maintenance, 06/10/19 8:53:00 EST Start Date: 06/10/19 Status: Ordered Aspirin Tablet 325 mg, By Mouth, 2 times a day, Refills 0, Maintenance, 06/10/19 8:53:00 EST Start Date: 06/10/19 Status: Ordered CeleBREX 200 mg oral capsule 1 capsule = 200 mg, By Mouth, Daily, # 30 capsule, 0 Refills, Maintenance, 06/09/19 6:34:00 EST, Capsule Start Date: 06/09/19 Status: Ordered Colace Capsule 100 mg, 1, capsule, By Mouth, 2 times a day, Refills 0, Maintenance, 06/10/19 8:53:00 EST Start Date: 06/10/19 Status: Ordered duloxetine 60 mg oral enteric coated capsule 1 capsule = 60 mg, By Mouth, Daily, # 30 capsule, 0 Refills, Maintenance, 12/06/16 16:05:33, EC Capsule Start Date: 12/06/16 Status: Ordered Maalox Plus Liquid 30 mL, By Mouth, Every 4 hours, PRN Other, Heartburn, 0 Refills, Maintenance, 06/10/19 8:53:00 EST,Suspension Start Date: 06/10/19 Status: Ordered meclizine 25 mg oral tablet 1 tablet = 25 mg, By Mouth, 3 times a day, PRN for motion sickness, # 60 tablet, 0 Refills, Maintenance, 06/09/19 6:32:00 EST, Tablet Start Date: 06/09/19 Status: Ordered Milk of Magnesia Liquid 30 mL, By Mouth, Daily, PRN Constipation, 0 Refills, Maintenance, 06/10/19 8:53:00 EST, Suspension Start Date: 06/10/19 Status: Ordered MiraLax Powder 1 pack/packet = 17 Gm, By Mouth, Daily, 0 Refills, Maintenance, 06/10/19 8:53:00 EST, Powder Start Date: 06/10/19 Status: Ordered senna 187 mg oral tablet 1 tablet = 8.6 mg, By Mouth, Daily at bedtime, 0 Refills, Maintenance, 06/10/19 8:53:00 EST, Tablet Start Date: 06/10/19 Status: Ordered traMADol 50 mg oral tablet 1 tablet = 50 mg, By Mouth, Every 4 hours, PRN Pain , Moderate, for 7 days, not to exceed 400 mg/day, # 42 tablet, 0 Refills, Acute 06/17/19 8:50:00 EST, 06/10/19 8:50:00 EST, Tablet Start Date: 06/10/19 Stop Date: 06/17/19 Status: Ordered Problem List Condition Effective Dates Status Health Status Inform ant Alopecia Areata(Confirmed) 06/25/12 Active EDDIE positive at 1:2,560 homogenous(Confirmed) 03/18/12 Active Arthritis of left knee(Confirmed) Active Depression(Confirmed) Active Diverticulosis(Confirmed) Active Gastric reflux(Confirmed) Active History of gastric bypass(Confirmed) Active Hypercholesterolemia mild(Confirmed) Active Elevated fasting glucose(Confirmed) Active Hypertension(Confirmed) Active Irritable bowel syndrome(Confirmed) Active Lichen planus(Confirmed) Active Lipodystrophy(Confirmed) Active Low libido(Confirmed) 1 Active Osteoarthritis of lumbar spine(Confirmed) 10/26/13 Active Obesity(Confirmed) Active Seasonal allergic rhinitis(Confirmed) Active Tricuspid regurgitation(Confirmed) 2 07/30/06 Active Vitamin D deficiency(Confirmed) 08/29/08 Active 1? due to citalopram 2mild to moderate Results Radiology Reports * Exam Date Time Procedure Performing Provider Status 06/09/19 10:17 PM Knee 1 or 2 Views Left Keaton Del Cid; Auth (Verified) Notes: (Knee 1 or 2 Views Left) Reason For Exam: Postop RESULT: Knee 1 or 2 Views Left Knee 1 or 2 Views Left 1 view INDICATION/CLINICAL QUESTION: Reason: Postop; Clinical Question(s): Implant Position COMPARISON: None. FINDINGS: Total knee arthroplasty with intact hardware and normal alignment. No fracture. Surgical drain in place. IMPRESSION: No apparent complication. WSN: [id number] Dictated By: Ankush Shen MD Dictated Date/Time: 06/09/19 10:18 p Reviewed By: Ankush Shen MD Signed By: Ankush Shen MD Signed Date/Time: 06/09/19 10:18 pm Transcribed By: ISAEL Transcribed Date/Time: 06/09/19 10:17 pm Vital Signs Most recent to oldest [Reference Range]: 1 2 3 Height 165 cm (06/10/19 6:51 AM) 165 cm (06/10/19 4:42 AM) 165 cm (06/10/19 12:57 AM) Weight 96.3 kg (06/09/19 8:08 AM) 96.3 kg (06/09/19 6:10 AM) Oxygen Saturation [94-100 %] 100 % (06/10/19 6:51 AM) 99 % (06/10/19 4:42 AM) 98 % (06/10/19 12:57 AM) Pulse Rate [55-90 bpm] 57 bpm (06/10/19 7:54 AM) 57 bpm (06/10/19 6:51 AM) 64 bpm (06/10/19 4:42 AM) Body Mass Index [18.5-24.99] 35.37 *>HHI* (06/09/19 8:08 AM) 35.37 *>HHI* (06/09/19 6:10 AM) Blood Pressure [90-138/55-84 mm Hg] 130/73mm Hg (06/10/19 7:54 AM) 130/73mm Hg (06/10/19 7:54 AM) 130/73mm Hg (06/10/19 6:51 AM) Respiratory Rate [16-30 br/min] 18 br/min (06/10/19 12:19 PM) 18 br/min (06/10/19 9:41 AM) 18 br/min (06/10/19 7:50 AM) Temperature [96.8-100.4 DegF] 97.9 DegF (06/10/19 6:51 AM) 97.2 DegF (06/10/19 4:42 AM) 97.6 DegF (06/10/19 12:57 AM) Mode of Delivery (Oxygen) Room air (06/10/19 6:51 AM) Room air (06/10/19 4:42 AM) Room air (06/10/19 12:57 AM) Blood pressure sites Arm, right (06/10/19 6:51 AM) Arm, right (06/09/19 3:42 PM) Arm, right (06/09/19 12:59 PM) Temperature Route Oral (06/10/19 6:51 AM) Oral (06/10/19 4:42 AM) Oral (06/10/19 12:57 AM) Dry Weight 96.3 kg (06/09/19 6:10 AM) Sensory deficits None (06/09/19 6:10 AM) Mobility assistance Independent (06/09/19 6:10 AM) Social History Social History Type Response Smoking Status Never smoker entered on: 05/10/14 Sex
--- OUTSIDE RECORDS SUMMARY | 2023-10-16 07:08 | XMS_ITS | Continuity of Care Document ---
Author Organization [facility] Address [address] [place] [phone]- Care Team Providers Care Pressure Steamer Tender Name Role Phone Rachelle Goodman MD Primary Care Physician Encounter [facility] Date(s): 07/25/21 - 08/24/21 [facility] [address] [place] [address]- Allergies, Adverse Reactions, Alerts Substance Reaction Severity Status codeine Active lisinopril 1 Active penicillins hives Active Dyazide 2 Active Adhesive Bandage Active 1Dizziness 2Dizziness Immunizations Given and Recorded Vaccine Date Status Refusal Reason zoster vaccine, inactivated 06/08/21 Recorded zoster vaccine, inactivated 03/12/21 Recorded SARS-CoV-2 (COVID-19) mRNA BNT-162b2 vac 03/05/21 Recorded SARS-CoV-2 (COVID-19) mRNA BNT-162b2 vac 08/08/20 Given SARS-CoV-2 (COVID-19) mRNA BNT-162b2 vac 07/18/20 Given influenza virus vaccine, inactivated 02/16/21 Give n influenza virus vaccine, inactivated 02/08/20 Give n [...] Vaccine (oldterm) 05/20/01 Given 1Result Comment: [01/26/2018] [id number] 2Result Comment: [01/26/2013] Ordered by Dr. Rachelle Goodman 3Admin Note: [facility] 4Admin Note: ovn hoskins pasteur 5Result Comment: [01/26/2018] [id number] 6Admin Note: Gave the VIS 10-21-2011 7Admin [...] EDDIE positive at 1:2,560 homogenous(Confirmed) 03/18/12 Active Anxiety(Confirmed) Active Benign positional vertigo(Confirmed) Active Cervical arthritis(Confirmed) Active Chronic low back pain(Confirmed) Active Diverticulosis(Confirmed) Active Gastric reflux(Confirmed) Active History of gastric bypass(Confirmed) Active Hypercholesterolemia mild(Confirmed) Active Hypertension(Confirmed) Active Irritable bowel syndrome(Confirmed) Active Lichen planus(Confirmed) Active Lipodystrophy(Confirmed) Active Loose stools(Confirmed) Active Low libido(Confirmed) 1 Active Osteoarthritis of lumbar spine(Confirmed) 10/26/13 Active Obese class II(Confirmed) Active Obesity(Confirmed) Active Prediabetes(Confirmed) Active Moderate recurrent major depression(Confirmed) Active Seasonal allergic rhinitis(Confirmed) Active Tricuspid regurgitation(Confirmed) 2 07/30/06 Active Vitamin D deficiency(Confirmed) 08/29/08 Active 1? due to citalopram 2mild to moderate Social History Social History Type Response Smoking Status Never smoker entered on: 05/10/14 Sex
--- OUTSIDE RECORDS SUMMARY | 2023-10-16 07:08 | XMS_ITS | Continuity of Care Document ---
Author Organization [facility] Address [address] [place] [address]- Care Team Providers Care Dairy Technologist Name Role Phone Rachelle Goodman MD Primary Care Physician [phone] Encounter [facility] Date(s): 10/27/19 - 02/15/[address] [address]- [facility] Discharge Disposition: A-D/C Home Attending Physician: Rachelle Goodman MD Admitting Physician: Rachelle Goodman MD Referring Physician: Rachelle Goodman MD Allergies, Adverse Reactions, Alerts Substance Reaction Severity Status codeine Active lisinopril 1 Active penicillins hives Active Dyazide 2 Active Adhesive Bandage Active 1Dizziness 2Dizziness Immunizations Given and Recorded Vaccine Date Status Refusal Reason influenza virus vaccine, inactivated 02/08/20 Give n [...] Vaccine (oldterm) 05/20/01 Given 1Result Comment: [01/26/2018] [id number] 2Result Comment: [01/26/2013] Ordered by Dr. Rachelle Goodman 3Admin Note: [facility] 4Admin Note: von sanofi pasteur 5Result Comment: [01/26/2018] [id number] 6Admin Note: Gave the VIS 10-21-2011 7Admin [...] EDDIE positive at 1:2,560 homogenous(Confirmed) 03/18/12 Active Cervical arthritis(Confirmed) Active Depression(Confirmed) Active Diverticulosis(Confirmed) Active Gastric reflux(Confirmed) Active History of gastric bypass(Confirmed) Active Hypercholesterolemia mild(Confirmed) Active Hypertension(Confirmed) Active Irritable bowel syndrome(Confirmed) Active Lichen planus(Confirmed) Active Lipodystrophy(Confirmed) Active Low libido(Confirmed) 1 Active Osteoarthritis of lumbar spine(Confirmed) 10/26/13 Active Obesity(Confirmed) Active Prediabetes(Confirmed) Active Seasonal allergic rhinitis(Confirmed) Active Tricuspid regurgitation(Confirmed) 2 07/30/06 Active Vitamin D deficiency(Confirmed) 08/29/08 Active 1? due to citalopram 2mild to moderate Social History Social History Type Response Smoking Status Never smoker entered on: 1/20/15 Sex
--- OUTSIDE RECORDS SUMMARY | 2023-10-16 07:08 | XMS_ITS | Continuity of Care Document ---
Author Organization [facility] ter Address [address] [place] [address]- Care Team Providers Care Edm Operator Name Role Phone Rachelle Goodman MD Primary Care Physician [place] [facility] Date(s): 02/20/22 - 02/20/[address] [address] Discharge Disposition: A-D/C Home Attending Physician: Rickey Marcos MD Admitting Physician: Rickey Marcos MD Referring Physician: Rickey Marcos MD Allergies, Adverse Reactions, Alerts Substance Reaction [...] Vaccine (oldterm) 05/20/01 Given 1Result Comment: [01/26/2018] [id number] 2Result Comment: [01/26/2013] Ordered by Dr. Rachelle Goodman 3Admin Note: [facility] 4Admin Note: von childers 5Result Comment: [01/26/2018] [id number] 6Admin Note: Gave the VIS 10-21-2011 7Admin Note: [facility] 8Admin Note: hep A #2 9Admin Note: hep A #1 Medications amLODIPine 2.5 mg oral tablet 2.5 mg, 1, tablet, By Mouth, Daily, Start while taking Paxlovid and for a total of 10 days and thenswitch back to your amlodipine 5 mg daily prescription, # 10 tablet, Refills 0, Tot. Refills 0, Maintenance, 11/21/21 11:22:00 EDT, Route to Pharmacy E... Start Date: 11/21/21 Stop Date: 12/01/21 Status: Ordered amLODIPine 5 mg oral tablet 1 tablet, By Mouth, Daily, # 90 tablet, 1 Refills, Maintenance, 11/30/21 9:56:00 EDT, [facility]/pharmacy #[id number], 165, cm, 08/15/21 9:41:00 EDT, Height, 97.1, kg, 01/06/20 8:36:00 EDT, Dry Weight Start Date: 11/30/21 Stop Date: 05/29/22 Status: Ordered B 100 Complex By Mouth, Daily, 0 Refills, Maintenance, 02/08/20 15:26:00 EDT Start Date: 02/08/20 Status: Ordered calcium carbonate 600 mg oral tablet 2 tablet = 1,200 mg, By Mouth, Daily, 0 Refills, Maintenance, 02/16/21 16:47:00 EDT, Partial fill upon patient request if the prescription is for a schedule II opioid drug. Start Date: 02/16/21 Status: Ordered carvedilol 6.25 mg oral tablet 6.25 mg, 1, tablet, By Mouth, 2 times a day, # 180 tablet, Refills 3, Tot. Refills 3, Maintenance, 04/11/21 16:49:00 EST, Route to Pharmacy Electronically, [facility]/pharmacy #[id number], stop carvedilol 3.125 Rx, 165, cm, 02/16/21 16:12:00 EDT, Height, 97.1, kg,... Start Date: 04/11/21 Status: Ordered CeleBREX 200 mg oral capsule 1 capsule = 200 mg, By Mouth, Daily, # 30 capsule, 0 Refills, Maintenance, 06/09/19 6:34:00 EST, Capsule Start Date: 06/09/19 Status: Ordered cloNIDine 0.1 mg oral tablet 0.1 mg, By Mouth, 4 times a day, # 30 tablet, Refills 0, Maintenance, 08/15/21 9:36:00 EDT, Partialfill upon patient request if the prescription is for a schedule II opioid drug. Start Date: 08/15/21 Status: Ordered duloxetine 60 mg oral enteric coated capsule 1 capsule = 60 mg, By Mouth, Daily, # 30 capsule, 0 Refills, Maintenance, 12/06/16 16:05:33, EC Capsule Start Date: 12/06/16 Status: Ordered ferrous sulfate 325 mg oral tablet 1 tablet = 325 mg, By Mouth, 3 times a day, # 90 tablet, 3 Refills, Maintenance, 08/15/21 9:49:00 EDT, Tablet, Partial fill upon patient request if the prescription is for a schedule II opioid drug. Start Date: 08/15/21 Status: Ordered Fish Oil = 1,280 mg, By Mouth, 0 Refills, Maintenance, 02/08/20 15:25:00 EDT Start Date: 02/08/20 Status: Ordered Multi Vitamin+ 0 Refills, Maintenance, 02/08/20 15:26:00 EDT Start Date: 02/08/20 Status: Ordered omeprazole 20 mg oral enteric coated capsule 1 capsule, By Mouth, Daily, # 90 capsule, 0 Refills, Maintenance, 01/28/22 16:15:00 EDT, [id number], 165, cm, 08/15/21 9:41:00 EDT, Height Start Date: 01/28/22 Status: Ordered OxyCODONE IR Tablet 5 mg, Tablet, By Mouth, Every 4 hours, in PACU ONLY, if patient can tolerate PO, PRN for Pain , Mild, Routine, 02/20/22 8:52:00 EDT Start Date: 02/20/22 Stop Date: 02/27/22 Status: Ordered Paxlovid Paxlovid, See Instructions, # 1 Unknown, Refills 0, Tot. Refills 0, Maintenance, 300 mg nirmatrelvir (two 150 mg tablets) with 100 mg ritonavir (one tablet). All 3 tablets taken together twice daily for 5 days with or without food., 11/21/21 11:22:00... Start Date: 11/21/21 Status: Ordered Probiotic Formula By Mouth, Daily, 0 Refills, Maintenance, 02/08/20 15:25:00 EDT Start Date: 02/08/20 Status: Ordered traZODone 50 mg oral tablet Refills 0, Maintenance, 08/15/21 9:34:00 EDT, Partial fill upon patient request if the prescriptionis for a schedule II opioid drug. Start Date: 08/15/21 Status: Ordered Triamcinolone Once, 0 Refills, Maintenance, 02/16/21 16:53:00 EDT, Partial fill upon patient request if the prescription is for a schedule II opioid drug. Start Date: 02/16/21 Status: Ordered Vitamin D3 By Mouth, 2 times a day, 0 Refills, Maintenance, 02/08/20 15:27:00 EDT Start Date: 02/08/20 Status: Ordered Problem List Condition Confirmation Course Effective Dates Status Health Status Informant Alopecia areata Confirmed 06/25/12 Active EDDIE positive at 1:2,560 homogenous Confirmed 03/18/12 Active Anxiety Confirmed Active Benign positional vertigo Confirmed Active Cervical arthritis Confirmed Active Chronic low back pain Confirmed Active Diverticulosis Confirmed Active Gastric reflux Confirmed Active History of gastric bypass Confirmed Active Hypercholesterolemia mild Confirmed Active Hypertension Confirmed Active Irritable bowel syndrome Confirmed Active Lichen planus Confirmed Active Lipodystrophy Confirmed Active Loose stools Confirmed Active Low libido 1 Confirmed Active Osteoarthritis of lumbar spine Confirmed 10/26/13 Active Prediabetes Confirmed Active Primary insomnia Confirmed Active Moderate recurrent major depression Confirmed Active Seasonal allergic rhinitis Confirmed Active Severe obesity (BMI 35.0-39.9) with comorbidity 2 Confirmed Active Tricuspid regurgitation 3 Confirmed 07/30/06 Active Vitamin D deficiency Confirmed 08/29/08 Active 1? due to citalopram 2Prediabetes, Hypercholesterolemia, OA, HTN 3mild to moderate Vital Signs Most recent to oldest [Reference Range]: 1 2 3 Weight 96.6 kg (02/20/22 6:28 AM) Oxygen Saturation [94-100 %] 100 % (02/20/22 4:45 PM) 94 % (02/20/22 2:00 PM) 98 % (02/20/22 1:45 PM) Pulse Rate [55-90 bpm] 77 bpm (02/20/22 6:28 AM) Blood Pressure [90-138/55-84 mm Hg] 137/72mm Hg (02/20/22 2:00 PM) 156/94mm Hg *H* (02/20/22 1:45 PM) 152/73mm Hg *H* (02/20/22 1:30 PM) Respiratory Rate [16-30 br/min] 16 br/min (02/20/22 4:50 PM) 17 br/min (02/20/22 2:00 PM) 11 br/min *L* (02/20/22 1:45 PM) Temperature [96.8-100.4 DegF] 98.5 DegF (02/20/22 4:45 PM) 97.5 DegF (02/20/22 1:00 PM) 97.1 DegF (02/20/22 11:45 AM) Liters per Minute 6 L/min (02/20/22 12:45 PM) 6 L/min (02/20/22 12:30 PM) 6 L/min (02/20/22 12:15 PM) Mode of Delivery (Oxygen) Room air (02/20/22 4:45 PM) Room air (02/20/22 2:00 PM) Room air (02/20/22 1:45 PM) Blood pressure sites Leg, right (02/20/22 11:45 AM) Arm, right (02/20/22 6:28 AM) Temperature Route Temporal (02/20/22 4:45 PM) Temporal (02/20/22 1:00 PM) Temporal (02/20/22 11:45 AM) Dry Weight 96.6 kg (02/20/22 6:28 AM) Weight Obtained Via Standing scale (02/20/22 6:28 AM) Dry Weight Obtained Via Standing scale (02/20/22 6:28 AM) Social History Social History Type Response Smoking Status Never smoker entered on: 05/10/14 Sex Patient Care team information Personnel Name: Rex WALLER, Rachelle Valle Address: Address: [address] [place] [address] [place] [address]
--- OUTSIDE RECORDS SUMMARY | 2023-10-16 07:08 | XMS_ITS | Continuity of Care Document ---
Author Organization [facility] Address [address] [place] [address]- Care Team Providers Care Occasional Babysitter Name Role Phone Rachelle Goodman MD Primary Care Physician Encounter [facility] [place] Date(s): 08/21/21 - 11/27/[address] [address] Discharge Disposition: A-D/C Home Attending Physician: Rachelle Goodman MD Admitting Physician: Rachelle Goodman MD Referring Physician: Joslyn Rain Allergies, Adverse Reactions, Alerts Substance Reaction Severity Status codeine Active lisinopril 1 Active Dyazide 2 Active penicillins hives Active Adhesive Bandage Active 1Dizziness 2Dizziness Immunizations [...] 01/16/10 Give n influenza virus vaccine, inactivated 2/8/10 Give n influenza virus vaccine, inactivated 4 [...] Vaccine (oldterm) 05/20/01 Given 1Result Comment: [01/26/2018] [id number] 2Result Comment: [01/26/2013] Ordered by Dr. Rachelle Goodman 3Admin Note: [facility] 4Admin Note: von hoskins pasteur 5Result Comment: [01/26/2018] [id number] 6Admin Note: Gave the VIS 10-21-2011 7Admin [...] Dates Status Health Status Inform ant Alopecia areata(Confirmed) 06/25/12 Active EDDIE positive at 1:2,560 homogenous(Confirmed) 03/18/12 Active Anxiety(Confirmed) Active Benign positional vertigo(Confirmed) Active Cervical arthritis(Confirmed) Active Chronic low back pain(Confirmed) Active Diverticulosis(Confirmed) Active Gastric reflux(Confirmed) Active History of gastric bypass(Confirmed) Active Hypercholesterolemia mild(Confirmed) Active Hypertension(Confirmed) Active Irritable bowel syndrome(Confirmed) Active Lichen planus(Confirmed) Active Lipodystrophy(Confirmed) Active Loose stools(Confirmed) Active Low libido(Confirmed) 1 Active Osteoarthritis of lumbar spine(Confirmed) 10/26/13 Active Prediabetes(Confirmed) Active Primary insomnia(Confirmed) Active Moderate recurrent major depression(Confirmed) Active Seasonal allergic rhinitis(Confirmed) Active Severe obesity (BMI 35.0-39. 9) with comorbidity(Confirmed) 2 Active Tricuspid regurgitation(Confirmed) 3 07/30/06 Active Vitamin D deficiency(Confirmed) 08/29/08 Active 1? due to citalopram 2Prediabetes, Hypercholesterolemia, OA, HTN 3mild to moderate Social History Social History Type Response Smoking Status Never smoker entered on: 05/10/14 Sex
--- OUTSIDE RECORDS SUMMARY | 2023-10-16 07:08 | XMS_ITS | Continuity of Care Document ---
Author Organization [facility] Address [address] [place] [address]- Care Team Providers Care Registered Nurse Post Partum Name Role Phone Rachelle Goodman MD Primary Care Physician Encounter [facility] [place] Date(s): 08/22/21 - 12/20/[address] [facility] [address] [place] [address]- Attending Physician: Deny Conde MD Admitting Physician: Deny Conde MD Referring Physician: Rachelle Goodman MD Allergies, [...] Vaccine (oldterm) 05/20/01 Given 1Result Comment: [01/26/2018] [id number] 2Result Comment: [01/26/2013] Ordered by Dr. Rachelle Goodman 3Admin Note: [facility] 4Admin Note: von hoskins pasteur 5Result Comment: [01/26/2018] [id number] 6Admin Note: Gave the VIS 10-21-2011 7Admin [...] tablet, 1 Refills, Maintenance, 11/30/21 9:56:00 EDT, [id number], 165, cm, 08/15/21 9:41:00 EDT, Height, [...] 04/11/21 16:49:00 EST, Route to Pharmacy Electronically, [facility]/pharmacy #[id number], stop carvedilol 3.125 Rx, 165, cm, [...] Mouth, Daily, # 90 capsule, 0 Refills, [facility], 165, cm, 08/15/21 9:41:00 EDT, Height, 97.1, kg, 01/06/20 8:36:00 EDT, Dry Weight Start Date: 10/26/21 Status: Ordered Paxlovid Paxlovid, See Instructions, # [...] Date: 02/08/20 Status: Ordered Problem List Condition Effective Dates [...] Status Never smoker entered on: 05/10/14 Sex Care Team Personnel Name: Rachelle Goodman MD Address: [address] [place] [address] Primary [place], [place] [address]
--- OUTSIDE RECORDS SUMMARY | 2023-10-16 07:08 | XMS_ITS | Continuity of Care Document ---
Author Organization [facility] Address [address] [place] [address]- Care Team Providers Care Public Affairs Manager Name Role Phone Rachelle Goodman MD Primary Care Physician Encounter [facility] Date(s): 12/16/19 - 01/15/20 [place] [address]- [facility] Attending Physician: Kendal Guzman Admitting Physician: AdmtrKendal Referring Physician: Admtr, Ar8 [...] Vaccine (oldterm) 05/20/01 Given 1Result Comment: [01/26/2018] [id number] 2Result Comment: [01/26/2013] Ordered by Dr. Rachelle Goodman 3Admin Note: [facility] 4Admin Note: von sanofi pasteur 5Result Comment: [01/26/2018] [id number] 6Admin Note: Gave the VIS 10-21-2011 7Admin [...]
--- OUTSIDE RECORDS SUMMARY | 2023-10-16 07:08 | XMS_ITS | Continuity of Care Document ---
Author Organization [facility] Address [address] [place] [address]- Care Team Providers Care Strength And Conditioning Coach Name Role Phone Rachelle Goodman MD Primary Care Physician [phone] Encounter [facility] [place] [place] [facility] [place] [id number] Date(s): 12/19/21 - 05/10/22 [facility] [address] [place] [address] Attending Physician: Deny Conde MD Admitting Physician: [...] Vaccine (oldterm) 05/20/01 Given 1Result Comment: [01/26/2018] [id number] 2Result Comment: [01/26/2013] Ordered by Dr. Rachelle Godoman 3Admin Note: [facility] 4Admin Note: von andresofi pasteur 5Result Comment: [01/26/2018] [id number] 6Admin Note: Gave the VIS 10-21-2011 7Admin [...] tablet, 1 Refills, Maintenance, 11/30/21 9:56:00 EDT, [facility]/pharmacy #[id number], 165, cm, 08/15/21 9:41:00 EDT, Height, [...] Status: Ordered carvedilol 6.25 mg oral tablet 1, tablet, By Mouth, 2 times a day, # 180 tablet, Refills 0, Maintenance, 03/01/22 18:55:00 EST, Route to Pharmacy Electronically, [facility], 165, cm, 08/15/21 9:41:00 EDT, Height, 96.6, kg, 02/20/22 6:28:00 EDT, Dry Weight Start Date: 03/01/22 Status: Ordered CeleBREX 200 mg oral capsule [...] Daily, # 90 capsule, 0 Refills, Maintenance, 04/17/22 19:05:00 EST, [facility]/pharmacy #7111, 165, cm, 08/15/21 9:41:00 EDT, Height, 96.6, kg, 02/20/22 6:28:00 EDT, Dry Weight Start Date: 04/17/22 Status: Ordered Paxlovid Paxlovid, See Instructions, # [...] on: 05/10/14 Sex Patient Care team information Care Team Personnel Name: Helen Yan RN Position: [facility] RN Member Role: Primary Care Nurse Name: Michelle Zimmerman RN Position: S RN Member Role: Primary Care Nurse Name: Alyson Morris Position: [facility] Outreach Member Role: Lifetime Consulting Physician Name: Rachelle Goodman MD Position: [facility] Primary Care Physician Member Role: PCP Address: Address: [address] [place] [address]- Name: Sarai Aquino RN Position: [facility] RN Member Role: Primary Care Nurse Name: Vick Nix DO Position: [facility] Renal MD Member Role: Lifetime Consulting Physician Address: Address: [address] [place], [place] [address] [place] [address]- Name: Ligia Casanova RN Position: [facility] RN Member Role: Primary Care Nurse Name: Erna Guerin RN Position: [facility] RN Member Role: Primary Care Nurse Care Team Related Persons Name: JUAN JOSE LUX Address: home [address] [place] [address]
--- OUTSIDE RECORDS SUMMARY | 2023-10-16 07:08 | XMS_ITS | Continuity of Care Document ---
Author Organization [facility] [place] Address [address] [place] [address]- Care Team Providers Care Fresh Work Wrapper Layer Name Role Phone Rachelle Goodman MD Primary Care Physician [phone] Encounter [facility] Date(s): 02/19/21 - 03/21/21 [facility] [address] [place] [address]- Allergies, Adverse Reactions, Alerts Substance Reaction Severity Status codeine Active lisinopril 1 Active penicillins hives Active Dyazide 2 Active Adhesive Bandage Active 1Dizziness 2Dizziness Immunizations Given and Recorded Vaccine Date Status Refusal Reason zoster vaccine, inactivated 03/12/21 Recorded SARS-CoV-2 (COVID-19) [...] Vaccine (oldterm) 05/20/01 Given 1Result Comment: [01/26/2018] [id number] 2Result Comment: [01/26/2013] Ordered by Dr. Rachelle Goodman 3Admin Note: [facility] 4Admin Note: von hoskins pasteur 5Result Comment: [01/26/2018] [id number] 6Admin Note: Gave the VIS 10-21-2011 7Admin [...]
--- OUTSIDE RECORDS SUMMARY | 2023-10-16 07:08 | XMS_ITS | Continuity of Care Document ---
Author Organization [facility] ter Address [address] [place] [address]- Care Team Providers Care Tooling Engineer Name Role Phone Dash Rachelle WALLER Primary Care Physician [phone] Encounter [facility] Date(s): 06/09/19 - 07/09/[address] [address]- [facility] Attending Physician: Not on Staff, Attending MD Admitting Physician: Not on Staff, Admitting MD Referring Physician: Not on Staff, Referring MD Allergies, Adverse Reactions, Alerts Substance Reaction [...] (oldterm) 6 02/03/12 Given Zostavax (oldterm) 7 8/25/12 Given Hepatitis A Adult Vaccine 8 01/17/11 Given Hepatitis A Adult Vaccine 9 03/28/10 Given tetanus/diphtheria/pertussis, acel(Tdap) 03/28/10 Given influ virus vac, H1N1, inactive(oldterm) 05/29/09 Given Tetanus Toxoid Vaccine (oldterm) 05/20/01 Given 1Result Comment: [01/26/2018] [id number] 2Result Comment: [01/26/2013] Ordered by Dr. Rachelle Goodman 3Admin Note: [facility] 4Admin Note: von andresofi pasteur 5Result Comment: [01/26/2018] [id number] 6Admin Note: Gave the VIS 10-21-2011 7Admin [...] EST, Tablet Start Date: 06/10/19 Status: Ordered Problem List Condition Effective Dates [...]
--- OUTSIDE RECORDS SUMMARY | 2023-10-16 07:08 | XMS_ITS | Continuity of Care Document ---
Author Organization [facility] Address [address] [place] [address]- Care Team Providers Care Warehouse Shipping Receiving Clerk Name Role Phone Rachelle Goodman MD Primary Care Physician Encounter [facility] Date(s): 07/27/21 - 08/26/21 [facility] [address] [place] [address]- Allergies, Adverse Reactions, Alerts Substance Reaction Severity [...] Vaccine (oldterm) 05/20/01 Given 1Result Comment: [01/26/2018] [address]-06 2Result Comment: [01/26/2013] Ordered by Dr. Rachelle Goodman 3Admin Note: [facility] 4Admin Note: von hoskins pasteur 5Result Comment: [01/26/2018] [id number] 6Admin Note: Gave the VIS 10-21-2011 7Admin [...]
--- OUTSIDE RECORDS SUMMARY | 2023-10-16 07:08 | XMS_ITS | Continuity of Care Document ---
Author Organization [facility] Address [address] [place] [address]- Care Team Providers Care Engineering Job Titles Name Role Phone Rachelle Goodman MD Primary Care Physician [place] [facility] [place] 06/18[place]21 - 07/19/21 [facility] [address] [place] [id number] Attending Physician: Deny Conde MD Admitting Physician: [...] Vaccine (oldterm) 05/20/01 Given 1Result Comment: [01/26/2018] [id number] 2Result Comment: [01/26/2013] Ordered by Dr. Rachelle Goodman 3Admin Note: [facility] 4Admin Note: von andresofi pasteur 5Result Comment: [01/26/2018] [id number] 6Admin Note: Gave the VIS 10-21-2011 7Admin [...]
--- OUTSIDE RECORDS SUMMARY | 2023-10-16 07:08 | XMS_ITS | Continuity of Care Document ---
Author Organization [facility] Address [address] [place] [address] [address] [place] [address]- Care Team Providers Care Spinning Machine Operator Name Role Phone Rachelle Goodman MD Primary Care Physician Encounter [facility] Date(s): 08/23/21 - 09/22/21 [facility] [address] [place] [address]- Allergies, Adverse Reactions, Alerts Substance Reaction Severity [...] 4 05/05/08 Gi lashon tetanus-diphtheria toxoids (Td) 1/24/20 Given Influenza Virus Vaccine (oldterm) 04/28/19 Recorde [...] Vaccine (oldterm) 05/20/01 Given 1Result Comment: [01/26/2018] [id number] 2Result Comment: [01/26/2013] Ordered by Dr. Rachelle Goodman 3Admin Note: [facility] 4Admin Note: vno hoskins pasteur 5Result Comment: [01/26/2018] [id number] 6Admin Note: Gave the VIS 10-21-2011 7Admin [...] class II(Confirmed) Active Obesity(Confirmed) Active Prediabetes(Confirmed) Active Primary insomnia(Confirmed) Active Moderate recurrent major depression(Confirmed) Active Seasonal allergic rhinitis(Confirmed) Active Tricuspid regurgitation(Confirmed) 2 07/30/06 Active Vitamin D deficiency(Confirmed) 08/29/08 Active 1? due to citalopram 2mild to moderate Social History Social History Type Response Smoking Status Never smoker entered on: 05/10/14 Sex
--- OUTSIDE RECORDS SUMMARY | 2023-10-16 07:08 | XMS_ITS | Continuity of Care Document ---
Author Organization [facility] Address [address] [place] [address]- Care Team Providers Care Flexo Folder Gluer Operator Name Role Phone Rachelle Goodman MD Primary Care Physician [phone] Encounter [facility] [place] Date(s): 06/19/21 - 07/19/21 [facility] [address] [address] Attending Physician: Admtr, Ar8 Admitting Physician: Admtr, Ar8 Referring Physician: Admtr, Ar8 Allergies, Adverse Reactions, [...] Vaccine (oldterm) 05/20/01 Given 1Result Comment: [01/26/2018] [id number] 2Result Comment: [01/26/2013] Ordered by Dr. Rachelle Goodman 3Admin Note: [facility] 4Admin Note: von hoskins pasteur 5Result Comment: [01/26/2018] [id number] 6Admin Note: Gave the VIS 10-21-2011 7Admin [...]
--- OUTSIDE RECORDS SUMMARY | 2023-10-16 07:08 | XMS_ITS | Continuity of Care Document ---
Author Organization [facility] Address [address] [place] [address]- Care Team Providers Care Clinic Business Manager Name Role Phone Rachelle Goodman MD Primary Care Physician [phone] Encounter 06/11/19 - 06/18/19 [facility] [address] [place] [address]- [facility] Discharge Disposition: GOALS MET Allergies, Adverse Reactions, Alerts Substance Reaction Severity [...] Vaccine (oldterm) 05/20/01 Given 1Result Comment: [01/26/2018] [id number] 2Result Comment: [01/26/2013] Ordered by Dr. Rachelle Goodman 3Admin Note: [facility] 4Admin Note: von andresofi pasteur 5Result Comment: [01/26/2018] [id number] 6Admin Note: Gave the VIS 10-21-2011 7Admin [...]
--- OUTSIDE RECORDS SUMMARY | 2023-10-16 07:08 | XMS_ITS | Continuity of Care Document ---
Author Organization [facility] Address [address] [place] [address]- Care Team Providers Care Oceanographer Physical Name Role Phone Rachelle Goodman MD Primary Care Physician Encounter [facility] Date(s): 06/01/19 - 06/11/[address] [address]- [facility] Attending Physician: Kendal Guzman Admitting Physician: Kendal Guzman Referring Physician: AdmtrKendal Allergies, Adverse Reactions, Alerts Substance Reaction Severity [...] Vaccine (oldterm) 05/20/01 Given 1Result Comment: [01/26/2018] [id number] 2Result Comment: [01/26/2013] Ordered by Dr. Rachelle Goodman 3Admin Note: [facility] 4Admin Note: von hoskins pasteur 5Result Comment: [01/26/2018] [id number] 6Admin Note: Gave the VIS 10-21-2011 7Admin [...]
--- OUTSIDE RECORDS SUMMARY | 2023-10-16 07:08 | XMS_ITS | Continuity of Care Document ---
Author Organization [facility] Address [address] [place] [address]- Care Team Providers Care Medical Lab Scientist Name Role Phone Rachelle Goodman MD Primary Care Physician [phone] Encounter [facility] Date(s): 04/10/23 - 05/10/[address] [address] Attending Physician: AdmKendal mejia Admitting Physician: Admtr, Kendal Referring Physician: Admtr, Ar8 Allergies, Adverse Reactions, Alerts Substance Reaction Severity Status codeine Active lisinopril 1 Active penicillins hives Active Dyazide 2 Active Adhesive Bandage Active 1Dizziness 2Dizziness Immunizations Given and Recorded Vaccine Date Status Refusal Reason influenza virus vaccine, inactivated 04/18/22 Jv rded influenza virus vaccine, inactivated 02/16/21 Give n [...] virus vaccine, inactivated 4 05/05/08 Gi lashon [id number] bivalent booster vax 04/18/22 Recorded zoster vaccine, inactivated 06/08/21 Recorded zoster vaccine, inactivated 03/12/21 Recorded SARS-CoV-2 (COVID-19) mRNA BNT-162b2 vac 03/05/21 Recorded SARS-CoV-2 (COVID-19) mRNA BNT-162b2 vac 08/08/20 Given SARS-CoV-2 (COVID-19) mRNA BNT-162b2 vac 07/18/20 Given tetanus-diphtheria toxoids (Td) 05/14/19 Given Influenza Virus [...] Vaccine (oldterm) 05/20/01 Given 1Result Comment: [01/26/2018] [id number] 2Result Comment: [01/26/2013] Ordered by Dr. Rachelle Goodman 3Admin Note: [facility] 4Admin Note: von hoskins pasteur 5Result Comment: [01/26/2018] [id number] 6Admin Note: Gave the VIS 10-21-2011 7Admin Note: [facility] 8Admin Note: hep A #2 9Admin Note: hep A #1 Medications amLODIPine 5 mg oral tablet 1 tablet, By Mouth, Daily, # 90 tablet, 1 Refills, Maintenance, 01/23/23 20:35:00 EDT, [facility], 165, cm, 08/21/22 14:43:00 EDT, Height, 96.6, kg, 02/20/22 6:28:00 EDT, Dry Weight Start Date: 01/23/23 Status: Ordered B 100 Complex By Mouth, [...] times a day, # 180 tablet, Refills 1, Maintenance, 12/13/22 20:06:00 EDT, Route to Pharmacy Electronically, [facility], 165, cm, 08/21/22 14:43:00 EDT, Height, 96.6, kg, 02/20/22 6:28:00 EDT, Dry Weight Start Date: 12/13/22 Status: Ordered CeleBREX 200 mg oral capsule [...] capsule, By Mouth, Daily, # 90 capsule, 1 Refills, Maintenance, 04/01/23 14:28:00 EST, [facility], 165, cm, 08/21/22 14:43:00 EDT, Height, 96.6, kg, 02/20/22 6:28:00 EDT, Dry Weight Start Date: 04/01/23 Status: Ordered Probiotic Formula By Mouth, Daily, [...] Osteoarthritis of lumbar spine Confirmed 10/26/13 Active Obese class I Confirmed Active Prediabetes Confirmed Active Primary insomnia Confirmed Active Moderate recurrent major depression Confirmed Active Seasonal allergic rhinitis Confirmed Active Tricuspid regurgitation 2 Confirmed 07/30/06 Active Vitamin D deficiency Confirmed 08/29/08 Active 1? due to citalopram 2mild to moderate Social History Social History Type Response Smoking Status Never smoker entered on: 05/10/14 Sex MG Breast Views * Event Display: MM Mammogram, Non- BH Authored Date: Patient Care team information Care Team Personnel Name: Helen Yan RN Position: [facility] SN RN Member Role: Primary Care Nurse Name: Michelle Zimmerman RN Position: [facility] RN Member Role: Primary Care Nurse Name: Alyson Morris Position: [facility] Outreach Member Role: Lifetime Consulting Physician Name: Rachelle Goodman MD Position: [facility] Physician - Primary Care Member Role: PCP Address: Address: [address] [place] [address] [place], [place] [address] Name: Sarai Aquino RN Position: [facility] RN Member Role: Primary Care Nurse Name: Vick Nix DO Position: [facility] Renal MD Member Role: Lifetime Consulting Physician Address: Address: [address] [place], [place] [address] [place] [address] Name: Ligia Casanova RN Position: S RN Member Role: Primary Care Nurse Name: Erna Guerin RN Position: S RN Member Role: Primary Care Nurse Care Team Related Persons Name: JUAN JOSE LUX Address: [address] [address]
--- OUTSIDE RECORDS SUMMARY | 2023-10-16 07:08 | XMS_ITS | Continuity of Care Document ---
Author Organization [facility] Address [address] [place] [address]- Care Team Providers Care Payable Manager Name Role Phone Rachelle Goodman MD Primary Care Physician [phone] [place] [facility] [place] - 11/02/[address] [address] Attending Physician: AdmKendal mejia Admitting Physician: Admtr, Ar8 Referring Physician: Admtr, [...] Vaccine (oldterm) 05/20/01 Given 1Result Comment: [01/26/2018] [id number] 2Result Comment: [01/26/2013] Ordered by Dr. Rachelle Goodman 3Admin Note: [facility] 4Admin Note: von hoskins pasteur 5Result Comment: [01/26/2018] [id number] 6Admin Note: Gave the VIS 10-21-2011 7Admin [...]
--- OUTSIDE RECORDS SUMMARY | 2023-10-16 07:08 | XMS_ITS | Continuity of Care Document ---
Author Organization [facility] Address [address] [place] [address]- Care Team Providers Care Vp Foundation Name Role Phone Rachelle Goodman MD Primary Care Physician En[place] [facility] [place] Date(s): 11/24/20 - 12/30/[address] [address]- Attending Physician: Rachelle Goodman MD Admitting Physician: Rachelle Goodman MD Allergies, Adverse Reactions, [...] Vaccine (oldterm) 05/20/01 Given 1Result Comment: [01/26/2018] [id number] 2Result Comment: [01/26/2013] Ordered by Dr. Rachelle Goodman 3Admin Note: [facility] 4Admin Note: von childers 5Result Comment: [01/26/2018] [id number] 6Admin Note: Gave the VIS 10-21-2011 7Admin [...] Seasonal allergic rhinitis(Confirmed) Active Tricuspid regurgitation(Confirmed) 2 4/11/07 Active Vitamin D deficiency(Confirmed) 08/29/08 Active 1? due to citalopram 2mild to moderate Social History Social History Type Response Smoking Status Never smoker entered on: 05/10/14 Sex
--- OUTSIDE RECORDS SUMMARY | 2023-10-16 07:08 | XMS_ITS | Continuity of Care Document ---
Author Organization [facility] Address [address] [place] [address]- Care Team Providers Care Bleacher Operator Name Role Phone Rachelle Goodman MD Primary Care Physician [place] [facility] [place](s): 11/20/20 - 12/20/[address] [address]- Attending Physician: AdmKendal mejia Admitting Physician: Admtr, [...] Vaccine (oldterm) 05/20/01 Given 1Result Comment: [01/26/2018] [id number] 2Result Comment: [01/26/2013] Ordered by Dr. Rachelle Goodman 3Admin Note: [facility] 4Admin Note: von hoskins pasteur 5Result Comment: [01/26/2018] [id number] 6Admin Note: Gave the VIS 10-21-2011 7Admin [...]
--- OUTSIDE RECORDS SUMMARY | 2023-10-16 07:08 | XMS_ITS | Continuity of Care Document ---
Author Organization [facility] Address [address] [place] [address]- Care Team Providers Care Gun Welder Name Role Phone Rachelle Goodman MD Primary Care Physician Encounter [facility] Date(s): 04/10/22 - 05/10/22 [facility] [address] [id number] Attending Physician: Admtr, [id number] [...] Vaccine (oldterm) 05/20/01 Given 1Result Comment: [01/26/2018] [id number] 2Result Comment: [01/26/2013] Ordered by Dr. Rachelle Goodman 3Admin Note: [facility] 4Admin Note: von hoskins pasteur 5Result Comment: [01/26/2018] [id number] 6Admin Note: Gave the VIS 10-21-2011 7Admin [...] tablet, 1 Refills, Maintenance, 11/30/21 9:56:00 EDT, [facility]/pharmacy #[id number], 165, cm, 08/15/21 9:41:00 EDT, Height, [...] 03/01/22 18:55:00 EST, Route to Pharmacy Electronically, [id number], 165, cm, 08/15/21 9:41:00 EDT, Height, 96.6, [...] capsule, 0 Refills, Maintenance, 04/17/22 19:05:00 EST, [facility]/pharmacy #[id number], 165, cm, 08/15/21 9:41:00 EDT, Height, [...] Team Personnel Name: Helen Yan RN Position: [facility] RN Member Role: Primary Care Nurse Name: Michelle Zimmerman RN Position: S RN Member Role: Primary Care Nurse Name: Alyson Morris Position: [facility] Outreach Member Role: Lifetime Consulting Physician Name: Rachelle Goodman MD Position: [facility] Primary Care Physician Member Role: PCP Address: Address: [address] [place] [address]- Name: Sarai Aquino RN Position: [facility] RN Member Role: Primary Care Nurse Name: Vick Nix DO Position: [facility] Renal MD Member Role: Lifetime Consulting Physician Address: Address: [address] [place] [address] [address] [facility] [place] [address]- Name: Ligia Casanova RN Position: [facility] RN Member Role: Primary Care Nurse Name: Erna Guerin RN Position: [facility] RN Member Role: Primary Care Nurse Care Team Related Persons Name: JUAN JOSE LUX Address: home [address]
--- OUTSIDE RECORDS SUMMARY | 2023-10-16 07:09 | XMS_ITS | Patient Health Record ---
Author Organization [facility] Address [address] [place] [phone] Care Team Providers Care Tail End Rider Name Role Phone Rachelle Goodman MD Primary Care Provider Ortiz Tolentino [phone] ALLERGIES Allergen (clinical drug ingredient) Drug/Non Drug Allergy documented on EMR Reaction Allergy Type Onset Date Status Penicillin Unknown Drug Allergy Active Codeine Phosphate Unknown Drug Allergy Active REASON FOR REFERRAL No Information MEDICATIONS Medication SIG (Take, Route, Frequency, Duration) Notes Start Date End Date Status traZODone HCl 50 MG TAKE 1 TABLET BY KIRK TH AT BEDTIME NEEDED FOR INSOMNIA. MAY REPEAT UP TO ONCE PER NIGHT. Oral for 30 Active Calcium 1200+D3 Acti ve Carvedilol 6.25 MG Oral for 90 Active Vitamin B Complex-C - as directed Orally Active amLODIPine Besylate 5 MG Oral for 90 Active [place] 3 1200 MG 1 capsule Orally Onc e a day for 30 day(s) Active cloNIDine HCl 0.1 MG TAKE 1 TABLET BY MO UTH DAILY NEEDED FOR PANIC ATTACK. Oral for 90 Active Iron 325 (65 Fe) MG 1 tablet Orally Once a day for 30 day(s) Active DULoxetine HCl 60 MG TAKE 1 CAPSULE BY M OUTH EVERY DAY Oral for 90 Active Probiotic 250 MG 1 capsule Orally Twi ce a day for 30 day(s) Active Vitamin D3 Super Strength 50 MCG (2000 UT) 1 tablet Orally Once a day for 30 day(s) Active Dicyclomine HCl 10 MG 1 or 2 capsules Or ally Three times a day 15 to 30 minutes before a meal to try to prevent the diarrhea and discomfort after the meal. for 30 day(s) 09/18/2021 Active Celecoxib 200 MG 1 capsule with food Orally Once a day for 30 day(s) Active Meclizine HCl 25 MG 1 tablet as needed O rally Once a day for 30 day(s) Active Multi Vitamin/Minerals Active Omeprazole 20 MG TAKE ONE CAPSULE BY MOUTH EVERY DAY Oral for 90 Active IMMUNIZATIONS Vaccine Route Administration Date Status Comme nts Influenza Unknown 02/19/2021 Administered SOCIAL HISTORY Sex Assigned At : Social History Observation Description Sex Assigned At Unknown PROBLEMS Problem Type ICD Code Onset Dates Problem Status W/U Status Risk SNOMED Code Notes Problem Irritable bowel syndrome with diarrhea (K58.0) Active confirmed Irritable bowel syndrome with diarrhea (362544334) Problem Abdominal pain, epigastric (R10.13) Active confirmed Epigastric pain (79565949) Problem GERD without esophagitis (K21.9) Active confirmed Gastroesophagea l reflux disease (455281762) Problem LUQ abdominal pain (R10.12) Active confirmed Left upper adam drant pain (886183119) PLAN OF TREATMENT Pending Test Test Name Order Date US ABD 09/18/2021 Future Test Test Name Order Date UPPER GI ENDOSCOPY 12/06/2014 COLONOSCOPY 12/06/2014 Insurance Providers Payer Name Payer Address Payer Phone Subscriber Number Group Number Insured Name Patient Relationship to Insured Coverage Start Date Coverage End Date [facility] [address] [place] [phone] [id number] DANIELA LUX Self - patient is the insured MEDICAL (GENERAL) HISTORY Medical History History ICD Code GERD--[id number]--ubveq H H-no sig. esophagitis nor Grimm's esophagus, gastric biopsies were normal and negative for H. pylori Colonoscopy 07-08-2005--no ad enomas, diverticulosis, small internal hemorrhoids HTN Denies [place],DM,CVA,Lung disease,renal dise ase Herniated discs at L1-L5 IBS--previous constipation, but currentl y diarrhea Arthritis-sees Dr. Hernandez Depression/Anxiety Normal EGD 01/2015--small hi atal hernia, no celiac disease, no anastomotic ulcers nor strictures, no esophagitis, no Grimm's Normal colonoscopy 01/2015-- no IBD/no polyps/no microscopic colitis on biopsies Lichen planus Surgical History Surgery Date(Month/Year) Sarah-en-Y Gastric bypass 2004--[facility]. Tripathi at [facility] Right knee replacement 2009 [facility]--1999 Exploratory surgery--2005-laparascopic-- negative exam Hand surgery Left knee replacement 2019 Bilateral shoulder surgery to take out a rthritis Cataract surgery both eyes
--- OUTSIDE RECORDS SUMMARY | 2023-10-16 07:09 | XMS_ITS | Continuity of Care Document ---
Author Organization [facility] Address [address] [place] [address]- Care Team Providers Care Returned Goods Repairer Name Role Phone Rachelle Goodman MD Primary Care Physician Encounter [facility] Date(s): 10/26/20 - 11/27/[address] [address]- Discharge Disposition: A-D/C Home Attending Physician: Isaías Martin Admitting Physician: Isaías Martin Referring Physician: Isaías Martin Allergies, Adverse Reactions, Alerts Substance Reaction Severity [...] Vaccine (oldterm) 05/20/01 Given 1Result Comment: [01/26/2018] [id number] 2Result Comment: [01/26/2013] Ordered by Dr. Rachelle Goodman 3Admin Note: [facility] 4Admin Note: von childers 5Result Comment: [01/26/2018] [id number] 6Admin Note: Gave the VIS 10-21-2011 7Admin [...]
== END 2023-10-11 00:36 | disposition home or self-care (01) ==
PROVIDERS: Emergency Provider Internal Medicine; PCP Internal Medicine
DX: F41.9 Anxiety disorder, unspecified (principal); E16.2 Hypoglycemia, unspecified; Z98.84 Bariatric surgery status; Z79.899 Other long term (current) drug therapy
CPT/HCPCS: 36415; 80053; 82947; 85025; 99283; 99284

== ENCOUNTER → 2024-08-23 13:30 | Outpatient (BNV) | payer MEDICARE, SELFPAY | PROVIDERS: PCP Internal Medicine; Visit Provider Internal Medicine | DX: Z12.31 Encounter for screening mammogram for malignant neoplasm of breast (principal) | CPT/HCPCS: 77063; 77067 ==

== ENCOUNTER 2024-08-23 13:32 | Outpatient (REF) | payer MEDICARE, SELFPAY ==
--- OUTSIDE RECORDS SUMMARY | 2024-08-23 14:58 | XMS_ITS | Patient Health Record ---
Author Organization [facility] Address [address] [place] [address] Care Team Providers Care Project Management Intern Name Role Phone Rachelle Goodman MD Primary Care Provider Ortiz Tolentino [phone] Allergies Allergen (clinical drug ingredient) Drug/Non Drug Allergy documented on EMR Reaction Allergy Type Onset Date Status Penicillin Unknown Drug Allergy Active Codeine Phosphate Unknown Drug Allergy Active Reason For Referral No Information Medications Medication SIG (Take, Route, Frequency, Duration) Notes [...] Besylate 5 MG Oral for 90 Active [place] 3 1200 MG 1 capsule Orally Onc [...] MOUTH EVERY DAY Oral for 90 Active Immunizations Vaccine Route Administration Date Status Comme nts Influenza Unknown 02/19/2021 Administered Problems Problem Type SNOMED Code ICD Code Onset Dates Problem Status W/U Status Risk Notes Problem Irritable bowel syndrome with diarrhea (415352097) Irritable bowel syndrome with diarrhea (K58.0) Active confirmed Problem Epigastric pain (92792701) Abdominal pain, epigastric (R10.13) Active confirmed Problem Gastroesophageal reflux disease (509107431) GERD without esophagitis (K21.9) Active confirmed Problem Left upper quadrant pain (462029005) LUQ abdominal pain (R10.12) Active confirmed Plan Of Treatment Pending Test Test Name Order Date US ABD 09/18/2021 Future Test Test Name Order Date UPPER GI ENDOSCOPY 12/06/2014 COLONOSCOPY 12/06/2014 Insurance Providers Payer Name Payer Address Payer Phone Subscriber Number Group Number Insured Name Patient Relationship to Insured Coverage Start Date Coverage End Date [facility] [address] [place] [phone] [id number] DANIELA LUX Self - patient is the insured Medical (General) History Medical History History ICD Code GERD--[id number]--[id number] H H-no sig. esophagitis nor Grimm's esophagus, gastric biopsies were normal and negative for H. pylori Colonoscopy 07-08-2005--no ad enomas, diverticulosis, small internal hemorrhoids HTN Denies [place],DM,CVA,Lung disease,renal dise ase Herniated discs at L1-L5 IBS--previous constipation, but currentl y diarrhea Arthritis-sees Dr. Hernandez Depression/Anxiety Normal EGD 01/2015--small hi atal hernia, no celiac disease, no anastomotic ulcers nor strictures, no esophagitis, no Grimm's Normal colonoscopy 01/2015-- no IBD/no polyps/no microscopic colitis on biopsies Lichen planus Surgical History Surgery Date(Month/Year) Sarah-en-Y Gastric bypass 2004--Dr. Tripathi at [facility] Right knee replacement 2009 [facility]--1999 Exploratory surgery--2006-laparascopic-- negative exam Hand surgery Left knee replacement 2019 Bilateral shoulder surgery to take out a rthritis Cataract surgery both eyes
--- OUTSIDE RECORDS SUMMARY | 2024-08-23 14:59 | XMS_ITS | Clinical Summary ---
Author Organization [facility], Address [address] [place] [address] [place] [address] Care Team Providers Care Regional Recruiter Name Role Phone Liset Goodman MD Primary Care Provider [phone] Allergies Active Allergy Reactions Criticality Noted Date Comments Adhesive Tape 08/02/2019 Codeine 08/02/2019 Triamterene-Hctz 08/02/2019 Lisinopril 08/02/2019 Penicillins 08/02/2019 Medications acetaminophen (TYLENOL 8 HOUR) 650 MG 8 hr tablet Take 650 mg by mouth every 6 (six) hours Do not crush, chew, or split. Active amLODIPine (NORVASC) 5 MG tablet Take 5 mg by mouth 1 (one) time each day Active aspirin 325 MG EC tablet Take 325 mg by mouth twice a day Active celecoxib (CeleBREX) 200 MG capsule Take 200 mg by mouth 1 (one) time each day Active docusate sodium (COLACE) 100 MG capsule Take 100 mg by mouth 2 (two) times a day Active DULoxetine (CYMBALTA) [address] capsule Take 60 mg by mouth 1 (one) time each day Active omeprazole (PriLOSEC) [address] capsule Take 20 mg by mouth 1 (one) time each day Active polyethylene glycol (GLYCOLAX) packet Take 17 g by mouth 1 (one) time each day Active senna (SENOKOT) 8.6 MG tablet Take 1 tablet by mouth 1 (one) time each day Active traMADol (ULTRAM) 50 MG tablet Take 50 mg by mouth every 4 (four) hours if needed Active carvedilol (Coreg) 12.5 MG tablet Take 1 tablet (12.5 mg total) by mouth in the morning and 1 tablet (12.5 mg total) in the evening. Take with meals. 180 tablet 3 06/08/2024 Active Active Problems Problem Noted Date Diagnosed Date Stage 3a chronic kidney disease 08/02/2019 Overview (04/24/2020): Update for Diagnosis Load Essential hypertension Hyperlipidemia Impaired fasting glucose Vitamin D deficiency Resolved Problems Problem Noted Date Diagnosed Date Resolved Date Hypertensive heart and chron ic kidney disease without heart failure, with stage 1 through stage 4 chronic kidney disease, or unspecified chronic kidney disease 08/03/201906/10 Encounters Date Type Department Care Team Description 06/08/2024 2:45 PM EST Office Visit [facility] [place] [address] Vick Nix DO Stage 3a chronic kidney disease (HCC) (Primary Dx); Essential hypertension; Hypertensive heart and chronic kidney disease without heart failure, with stage 1 through stage 4 chronic kidney disease, or unspecified chronic kidney disease from Last 3 Months Immunizations Immunization Administration Dates Next Due Influenza, Unspecified 01/26/2018 Pneumococcal Conjugate 13-Valent 08/27/2016 Pneumococcal Polysaccharide 01/26/2018 Social History Tobacco Use Types Packs/Day Years Used Date Smoking Tobacco: Never Assessed Comments Unknown Sex and Gender Information Value Date Recorded Sex Assigned at Not on file Legal Sex Female 4:31 PM EST Gender Identity Not on file Sexual Orientation Not on file Last Filed Vital Signs Vital Sign Reading Time Taken Comments Blood Pressure 126/78 06/08/2024 3:17 PM EST Pulse 72 06/08/2024 3:17 PM EST Temperature - - Respiratory Rate - - Oxygen Saturation - - Inhaled Oxygen Concentration - - Weight 97.5 kg (215 lb) 03/02/2019 12:00 PM EST Height 162.6 cm (5' 4 ) 03/02/2019 12:00 PM EST Body Mass Index 36.9 03/02/2019 12:00 PM EST Plan of Treatment Upcoming Encounters Date Type Department Care Team (Late st Contact Info) Description 06/07/2025 1:30 PM EST Office Visit [facility] [address] [place] [address] Vick Nix DO [address] [place] [address] Health Maintenance Due Date Last Done Comments Breast Cancer Screening 1950 Colorectal Cancer Screening: Annual FOBT 2000 Colorectal Cancer Screening: Colonoscopy 2000 Colorectal Cancer Screening: Sigmoidoscopy 2000 Influenza Vaccine (Season Ended) 2024 04/28/2019, 01/26/2018, 05/04/2014, Additional history exists Pneumococcal Vaccine: 50+ Years Completed 01/26/2018, 08/27/2016 Pneumococcal Vaccine: Peds (0 to 5 Years) and At-Risk Patients (6 to 49 Years) Discontinued 01/26/2018, 08/27/2016 Hepatitis B Vaccine Aged Out No longe r eligible based on patient's age to complete this topic Insurance [facility] Care Teams Regional Recruiter Relationship Specialty Start Date End Date Liset Goodman MD [address] [place] [address] [address] [place] [address] PCP - General 02/23/19
== END 2024-08-23 13:33 | disposition home or self-care (01) ==
LOC: HO.MAMMO 13:32
PROVIDERS: PCP Internal Medicine; Visit Provider Internal Medicine
DX: Z12.31 Encounter for screening mammogram for malignant neoplasm of breast (principal)
CPT/HCPCS: 77063; 77067